=== PATIENT | male | born 1985 | race Caucasian/White ===

== ENCOUNTER 2019-05-23 00:42 | Emergency (ER) | payer SELFPAY ==
[~2019-05-23] VITALS: Ht 162.6 cm; Wt 82.6 kg
[2019-05-23 00:49] VITALS: Ht 162.6 cm; Wt 82.6 kg
[2019-05-23 01:37] VITALS: BP 130/82
== END 2019-05-23 01:37 | disposition left against medical advice (07) ==
LOC: ED 00:42
DX: Z53.21 Procedure and treatment not carried out due to patient leaving prior to being seen by health care provider (principal)